=== PATIENT | female | born 1990 | race Caucasian/White ===

== ENCOUNTER 2018-01-02 15:47 | Emergency (ER) | payer OTHER, SELFPAY ==
[2018-01-02 15:59] VITALS: BP 113/75; PULSE 114; RESP 20; TEMP 36.9; O2SAT 97; BMI 25.8
[2018-01-02 17:00] VITALS: BP 105/64; PULSE 99; RESP 15; O2SAT 99
--- NOTE | 2018-01-02 17:00 | ED_ITS ---
HPI - Female Genitourinary General Chief complaint: Urogenital-Female Stated complaint: POSSIBLE FEVER,PAIN WHEN PEEING LOWER BACK PAIN Time Seen by Provider: 01/02/18 16:43 Source: patient Mode of arrival: ambulatory Limitations: no limitations History of Present Illness HPI Narrative: Patient is a 27-year-old female who presents with painful frequent urination. She thinks that she has had fever for the last 2 days as well. She has some mild low back pain no vaginal discharge no vaginal bleeding. She feels like she is going frequently. This feels like a UTI. Complaint: UTI Related Data Previous Rx's Medication Instructions Recorded sulfamethoxazole-trimethoprim 1 tab PO BID 7 Days #14 tab 01/02/18 [Bactrim DS] Allergies Allergy/AdvReac Type Severity Reaction Status Date / Time amoxicillin Allergy Verified 01/02/18 17:20 Review of Systems Review of Systems GENERAL: Denies chills,fever HEENT: Denies throat pain RESPIRATORY: Denies dyspnea, cough, wheezing CARDIOVASCULAR: Denies chest pain, palpitations GASTROINTESTINAL: Denies nausea, vomiting : See HPI MUSCULOSKELETAL: Denies extremity pain, injury SKIN: No rash, no laceration, no pruritus NEUROLOGIC: Denies weakness, dizziness, headache, numbness 8 point review of systems is negative except for those stated above and HPI PFSH Medical History Healthy adult (Acute) Social History Smoking Status: Current some day smoker Exam Initial Vital Signs Initial Vital Signs: Vital Signs Temperature 98.5 F 01/02/18 15:59 Pulse Rate 114 H 01/02/18 15:59 Respiratory Rate 20 01/02/18 15:59 Blood Pressure 113/75 01/02/18 15:59 Pulse Oximetry 97 01/02/18 15:59 GENERAL: Well-appearing, well-nourished and in no acute distress. HEENT: Head atraumatic,EOMI, pupils reactive, face symmetric, moist mucous membranes CARDIOVASCULAR: Regular rate and rhythm without murmurs, rubs or gallops. RESPIRATORY: Breath sounds equal bilaterally, no wheezes rales or rhonchi. ABDOMEN: Soft, nontender. Normoactive bowel sounds all 4 quadrants. No guarding or rebound. : No CVA tenderness EXTREMITIES: Normal range of motion, no clubbing or edema. Neurovascularly intact NEUROLOGICAL: Alert and oriented x4.Normal gait and speech. SKIN: Warm, dry, no laceration, no petechiae, no rashes or lesions. Course Orders Ordered: Discontinued Medications Sodium Chloride (Normal Saline 0.9%) 1,000 mls @ 1,000 mls/hr IV BOLUS ONE Stop: 01/02/18 17:59 Last Infusion: 01/02/18 19:04 Dose: 0 mls/hr Admin: 01/02/18 17:32 Dose: 1,000 mls/hr Ceftriaxone Sodium/Dextrose (Rocephin) 1 gm in 50 mls @ 100 mls/hr IV NOW ONE Stop: 01/02/18 18:16 Last Infusion: 01/02/18 18:41 Dose: 0 mls/hr Admin: 01/02/18 18:05 Dose: 100 mls/hr Ketorolac Tromethamine (Toradol) 30 mg IV NOW ONE Stop: 01/02/18 18:23 Last Admin: 01/02/18 18:38 Dose: 30 mg Vital Signs - 8 hr 01/02/18 15:59 01/02/18 17:00 Temperature 98.5 F Pulse Rate 114 H 99 H Respiratory Rate 20 15 Blood Pressure 113/75 Blood Pressure [Left Arm] 105/64 Pulse Oximetry 97 99 MDM - Female Genitourinary Lab Data Attestation: I reviewed the patient's lab results. Result diagrams: 01/02/18 17:22 01/02/18 17:22 Lab Results 01/02/18 01/02/18 01/02/18 Range/Units 17:10 17:22 17:22 WBC 13.4 H (4.5-11.0) X10^3/uL RBC 4.17 (4.0-5.2) X10^6/uL Hgb 12.8 (12.0-16.0) g/dL Hct 37.8 (36-46) % MCV 90.6 (80-100) fL MCH 30.6 (26-34) PG MCHC 33.8 (30-36) % RDW 12.8 (11.6-14.8) % Plt Count 270 (150-400) X10^3/uL Neut % (Auto) 85.5 H (50-75) % Lymph % (Auto) 6.7 L (25-40) % [place] % (Auto) 7.2 (3-14) % Eos % (Auto) 0.3 L (2-4) % Baso % (Auto) 0.3 (0-2) % Neut # (Auto) 28795 H (1179-3712) /uL Sodium 141 (137-145) mmol/L Potassium 4.0 (3.4-5.1) mmol/L Chloride 105 (98-107) mmol/L Carbon Dioxide 27 (22-32) mmol/L BUN 10 (7-17) mg/dL Creatinine 0.50 L (0.52-1.04) mg/dL Estimated GFR > 60.0 (>60) mL/min BUN/Creatinine Ratio 20.0 (6-22) Glucose 100 (70-100) mg/dL Lactate (0.7-2.1) mmol/L Calcium 9.1 (8.4-10.2) mg/dL Ur Chlamydia DNA (PCR) Not detected N gonorrhoeae DNA (PCR) Not detected 01/02/18 Range/Units 17:22 WBC (4.5-11.0) X10^3/uL RBC (4.0-5.2) X10^6/uL Hgb (12.0-16.0) g/dL Hct (36-46) % MCV (80-100) fL MCH (26-34) PG MCHC (30-36) % RDW (11.6-14.8) % Plt Count (150-400) X10^3/uL Neut % (Auto) (50-75) % Lymph % (Auto) (25-40) % [place] % (Auto) (3-14) % Eos % (Auto) (2-4) % Baso % (Auto) (0-2) % Neut # (Auto) (1368-2183) /uL Sodium (137-145) mmol/L Potassium (3.4-5.1) mmol/L Chloride (98-107) mmol/L Carbon Dioxide (22-32) mmol/L BUN (7-17) mg/dL Creatinine (0.52-1.04) mg/dL Estimated GFR (>60) mL/min BUN/Creatinine Ratio (6-22) Glucose (70-100) mg/dL Lactate 0.5 L (0.7-2.1) mmol/L Calcium (8.4-10.2) mg/dL Ur Chlamydia DNA (PCR) N gonorrhoeae DNA (PCR) Point of Care Testing Test Results Negative Urine Dip Bedside Urine Glucose Negative Bedside Urine Bilirubin - Negative Bedside Urine Ketone +/- 5 Urine Specific [place] 1.015 Bedside Urine Occult Blood - Negative Bedside Urine pH 6.0 Bedside Urine Protein - Negative Bedside Urine Urobilinogen - Negative Bedside Urine Nitrite - Negative Bedside Urine Leukocytes - Negative Esterase MDM Narrative Medical decision making narrative: Patient is a tachycardic. She says she has had fever chills for 2 days. As of will start IV all and check blood work. She is also requesting STD checking. I have offered her the urine test of gonorrhea chlamydia. She continues to deny any vaginal discharge. She does have an IUD which she says is also causing her some discomfort. Recommended that she see [facility] or primary for further evaluation. She has no severe pain sharper stabbing pain. She says it is just a little more uncomfortable. Discharge Plan Departure Patient Disposition: Home Clinical Impression: Urinary tract infection Discharge Date/Time: 01/02/18 19:35 Interventions: ED Discharge Assessment Last Done: 01/02/18 19:35 Instructions: DI for Urinary Tract Infection (UTI) Activity Restrictions/Additional Instructions: *You have been diagnosed with UTI *What to do: *Continue to take medications as directed Bactrim 1 pill twice a day for 5 days *Follow up with your primary care provider in 2-3 days *Return to ER if you should have fever, increasing pain or any new, worsening or concerning symptoms Prescriptions: New sulfamethoxazole-trimethoprim [Bactrim DS] 800-160 mg tablet 1 tab PO BID 7 Days Qty: 14 RF: 0
[2018-01-02 17:31] LABS: Add Manual Diff / Slide Review NO; Basophils Percent Auto 0.3 % (0-2); Eosinophils Percent Auto 0.3 % (2-4); Hematocrit 37.8 % (36-46); Hemoglobin 12.8 g/dL (12.0-16.0); Lymphocytes Percent Auto 6.7 % (25-40); Mean Corpuscular HGB Conc 33.8 % (30-36); Mean Corpuscular Hemoglobin 30.6 PG (26-34); Mean Corpuscular Volume 90.6 fL (80-100); Monocytes Percent Auto 7.2 % (3-14); Neutrophils Absolute Auto 11400 /uL (3000-5900); Neutrophils Percent Auto 85.5 % (50-75); Platelet Count 270 X10^3/uL (150-400); Red Blood Cell Count 4.17 X10^6/uL (4.0-5.2); Red Cell Distribution Width 12.8 % (11.6-14.8); White Blood Cell Count 13.4 X10^3/uL (4.5-11.0)
[2018-01-02] MEDS: SODIUM CHLORIDE 0.9% 1,000 ML 1000 ML IV (17:32)
[2018-01-02 17:42] LABS: Blood Urea Nitrogen 10 mg/dL (7-17); Calcium 9.1 mg/dL (8.4-10.2); Carbon Dioxide 27 mmol/L (22-32); Chloride 105 mmol/L (98-107); Estimated Glomerular Filt Rate > 60.0 mL/min (>60); Glucose 100 mg/dL (70-100); HEMOLYSIS 20 (0-50); Sodium 141 mmol/L (137-145)
[2018-01-02 17:52] LABS: Lactate (Lactic Acid) 0.5 mmol/L (0.7-2.1)
[2018-01-02 18:00] VITALS: BP 111/59; PULSE 86; RESP 15; O2SAT 100
[2018-01-02] MEDS: CEFTRIAXONE 1 GM/50 ML FROZ.PIGGY IV (18:05)
[2018-01-02] MEDS: KETOROLAC 60 MG/2 ML VIAL 30 MG IV (18:38)
[2018-01-02 18:46] LABS: Urine N gonorrhoeae NOT DETECTED
[2018-01-02 18:51] LABS: Urine Chlamydia NOT DETECTED
[2018-01-02 19:35] VITALS: BP 114/68; PULSE 83; RESP 18; TEMP 37.1; O2SAT 100
== END 2018-01-02 19:35 | disposition home or self-care (01) ==
PROVIDERS: Emergency Provider Emergency Medicine
DX: N39.0 Urinary tract infection, site not specified (principal)
CPT/HCPCS: 36591; 80048; 81003; 81025; 83605; 85025; 87491; 87591; 96361; 96365; 96375; 99283; 99284; J1885